=== PATIENT | female | born 1985 | race Caucasian/White ===

== ENCOUNTER 2020-03-26 14:26 | Emergency (ER) | payer OTHER, SELFPAY ==
[2020-03-26 14:27] VITALS: BP 129/89; PULSE 76; RESP 17; TEMP 35.3; O2SAT 97; BMI 35.6
[2020-03-26 14:31] VITALS: BP 129/89
--- NOTE | 2020-03-26 14:57 | ED.VISSUMM ---
- ER Visit Summary Date of Service: 03/26/20 Chief Complaint: Dental abscess History of Present Illness: The patient is a 34 F with a left maxillary dental abscess. She has been taking amoxicillin with no improvement. On the way to the ED, the abscess drained. She feels somewhat better. Physical Examination: Patient has a draining abscess to her left maxillary premolar region, buccal surface. Airway intact. Otherwise exam unremarkable. Test Results: None indicated Emergency Department Course and Treatment: Patient's abscess is continuing to drain. She is on the appropriate antibiotics for this. She has an appointment with her dentist on Saturday. She can take naproxen for pain. Return for any complications. Treatment Plan: As above Disposition: Discharge Impression: Dental abscess This note was generated with [employer] dictation software. It may contain incorrect words, spelling, and punctuation that were not noted in review of the chart prior to signing ED Disposition - Plan for ED Patient: Referrals: Juaquin Catherine DO [Primary Care Provider] -
--- NOTE | 2020-03-26 14:59 | ED.DEP ---
ED Disposition - Plan for ED Patient: Instructions: Dental Abscess Prescriptions: Naproxen [Naprosyn] 500 mg PO BID PRN #20 tab Prescription Printed
== END 2020-03-26 15:19 | disposition home or self-care (01) ==
LOC: ED 15:12
PROVIDERS: Emergency Provider Emergency Medicine; PCP Family Medicine
DX: K04.7 Periapical abscess without sinus (principal)
CPT/HCPCS: 99282